=== PATIENT | male | born 1990 | race Caucasian/White ===

== ENCOUNTER 2016-12-17 19:27 | Emergency (ER) | payer MEDICAID, OTHER ==
--- NOTE | 2016-12-17 19:55 | C.PDOC ---
History Of Present Illness 26 yo male come in for evaluation of Left foot puncture wound sustained early today, while at work. Pt reports, " stepped on nail, while working today". Pt admits, clean wound when came home with alcohol " and took one dose of antibiotic". Otherwise, pt denies fever, chills, weakness to Left foot, deformity, sensory or vascular deficits to Left foot. Ambulate to ED for evaluation, not in any apparent distress. Time Seen by Provider: 12/17/16 19:41 Chief Complaint (Nursing): Lower Extremity Problem/Injury History Per: Patient History/Exam Limitations: no limitations Onset/Duration Of Symptoms: Sudden Onset (Few hrs [employer]) Current Symptoms Are (Timing): Still Present Past Medical History Reviewed: Historical Data, Nursing Documentation, Vital Signs Vital Signs: Last Vital Signs Temp 98.5 F 12/17/16 20:03 Pulse 71 12/17/16 20:03 Resp 14 12/17/16 20:03 BP 128/71 12/17/16 20:03 Pulse Ox 99 12/17/16 20:03 - Medical History PMH: No Chronic Diseases Surgical History: No Surg Hx Family History: States: No Known Family Hx - Social History Hx Alcohol Use: Yes Hx Substance Use: No - Immunization History Hx Tetanus Toxoid Vaccination: No Hx Influenza Vaccination: No Hx Pneumococcal Vaccination: No Review Of Systems Except As Marked, All Systems Reviewed And Found Negative. Constitutional: Negative for: Fever, Chills Musculoskeletal: Positive for: Foot Pain, Other ((+) Left foot puncture. ) Skin: Positive for: Lesions Neurological: Negative for: Weakness, Numbness Physical Exam - Physical Exam Appears: Well, Non-toxic, No Acute Distress Skin: Normal Color, Warm, Other (small puncture wound noted to plantar aspect Left foot. No erythema, no edema, no proximal [id number], no flactulance. No FB noted.) Extremity: Tenderness (mild tenderness around puncture wound over plantar aspect left foot. ), No Swelling, Other (FAROM Of Left foot with out difficulty. NO palpable deformity to Left foot. No neurovascular deficits to Left foot.) Neurological/Psych: Oriented x3, Normal Speech, Normal Motor, Normal Sensation, Normal Reflexes ED Course And Treatment Progress Note: On re-eavl, pt is afebrile, hemodynamicaly stagle. Non-toxic. Left foot: exam c/w superficial puncture wond. No cellulitis, no flactulance. NO palpable deformity. FAROM, no neurovascular deficits tdistally to injury. Wound was irrigated, covered with topical abx cream. tetanus. abx given. Pt advised on course of ds. ref. to F/u with PMD In 2-3 days for re-eavl. return if any new changes. Medical Decision Making Medical Decision Making: PLAN: * Cipro PO * Tramadol PO * Bacitracin TOP * Tetanus IM Disposition Counseled Patient/Family Regarding: Diagnosis, Need For Followup, Rx Given - Disposition Referrals: Podiatry Clinic [Outside] Disposition: HOME/ ROUTINE Disposition Time: 19:57 Condition: GOOD Additional Instructions: WARM SALTY WATER FOOT SOAKS DAILY FOR 5 MINUTES TAKE MEDICATION PRESCRIBED FOLLOW UP WITH PODIATRY IN 2-3 DAYS FOR RE-EVALUATION. RETURN TO ED IF ANY WORSENING OR NEW CHANGES. Prescriptions: Bacitracin OINT 1 applic TP BID #1 tube Ciprofloxacin [Cipro] 1 tab PO BID #14 tab Instructions: Puncture Wound (ED) Forms: Work Excuse Print Language: ICELANDIC - Clinical Impression Clinical Impression: Puncture wound - PA / ESTHETICIAN / Resident Statement MD/DO has reviewed & agrees with the documentation as recorded. - Scribe Statement The provider has reviewed the documentation as recorded by the Scribe Nickie Shell All medical record entries made by the Scribe were at my direction and personally dictated by me. I have reviewed the chart and agree that the record accurately reflects my personal performance of the history, physical exam, medical decision making, and the department course for this patient. I have also personally directed, reviewed, and agree with the discharge instructions and disposition.
[2016-12-17] MEDS ORDERED: Bacitracin Ointment 30 GM TUBE TOP STA (19:58)
[2016-12-17 20:05] VITALS: BP 128/71; PULSE 71; RESP 14; TEMP 98.5; O2SAT 99
[2016-12-17] MEDS ORDERED: Bacitracin 500 Units/gm Oint Foilpak UD ONE (20:08)
== END 2016-12-17 20:17 | disposition home or self-care (01) ==
LOC: C.ER 19:27
DX: S91.332A Puncture wound without foreign body, left foot, initial encounter (principal); W45.0XXA Nail entering through skin, initial encounter; Y93.89 Activity, other specified; Y92.89 Other specified places as the place of occurrence of the external cause; Y99.0 Civilian activity done for income or pay